=== PATIENT | female | born 1965 | race Caucasian/White ===

== ENCOUNTER 2016-09-12 22:54 | Emergency (ER) | payer BC ==
[~2016-09-12] VITALS: Ht 144.8 cm; Wt 62.8 kg
[~2016-09-12 22:54] MED LIST: BENZ100 PO
[2016-09-12 23:13] VITALS: BP 133/71; PULSE 65; RESP 18; TEMP 98.3; O2SAT 96
[2016-09-12 23:23] VITALS: BP 133/71; PULSE 65; RESP 18; TEMP 98.3; O2SAT 96
[2016-09-13] MEDS ORDERED: PANTOPRAZOLE SODIUM 40 MG VIAL IVP ONE
[2016-09-13] MEDS ORDERED: FAMOTIDINE 20 MG/2 ML VIAL IV PUSH ONE
[2016-09-13] MEDS ORDERED: ONDANSETRON HCL 4 MG/2 ML VIAL IV ONE
--- NOTE | 2016-09-13 00:02 | PD ---
HPI Chief Complaint: GI Complaint Time Seen by Provider: 23:51 Travel History International Travel<30 days: No Contact w/Intl Traveler<30days: No Traveled to known affect area: No History of Present Illness HPI The patient is a 51-year-old female who states she has nausea, vomiting and diarrhea for 2 days. She does have some epigastric pain midline. She denies any blood in the stool or vomiting any blood. She denies any fever. She denies any history of similar bowel problems in the past. 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 She denies any foreign travel within the last 3 months. She denies any dysuria, frequency or urgency. PFSH Past Medical History Cardiovascular Problems: Yes (CHOL) High Cholesterol: Yes Diminished Hearing: No Immunizations Current: Yes Tetanus Vaccination: Unknown Influenza Vaccination: No ?: Not Menopausal: Yes : 4 Para: 4 Past Surgical History Section: Yes Gynecologic Surgery: Yes () Social History Alcohol Use: No Tobacco Use: No Substance Use: No Allergies-Medications (Allergen,Severity, Reaction): Coded Allergies: No Known Allergies (Verified , 09/12/16) Reported Meds & Prescriptions Reported Meds & Active Scripts Active No Active Prescriptions or Reported Medications Review of Systems Except as stated in HPI: all other systems reviewed are Neg Physical Exam Narrative GENERAL: The patient is alert, oriented 3 and slight apparent distress with her midline epigastric discomfort. Her vital signs are normal. She does appear mildly dehydrated. SKIN: Warm and dry. HEAD: Atraumatic. Normocephalic. EYES: Pupils equal and round. No scleral icterus. No injection or drainage. ENT: No nasal bleeding or discharge. Mucous membranes pink and moist. NECK: Trachea midline. No JVD. CARDIOVASCULAR: Regular rate and rhythm. No murmur appreciated. RESPIRATORY: No accessory muscle use. Clear to auscultation. Breath sounds equal bilaterally. GASTROINTESTINAL: Abdomen soft, with tenderness to direct palpation in the midline epigastrium, nondistended. Hepatic and splenic margins not palpable. No guarding or rebound is present. MUSCULOSKELETAL: No obvious deformities. No clubbing. No cyanosis. No edema. NEUROLOGICAL: Awake and alert. No obvious cranial nerve deficits. Motor grossly within normal limits. Normal speech. PSYCHIATRIC: Appropriate mood and affect; insight and judgment normal. Data Data Last Documented VS Vital Signs Date Time Temp Pulse Resp B/P Pulse Ox O2 Delivery O2 Flow Rate FiO2 09/13/16 00:33 57 18 145/70 100 Room Air 09/12/16 23:23 98.3 Orders Complete Blood Count With Diff (09/12/16 23:57) Comprehensive Metabolic Panel (09/12/16 23:57) Lipase (09/12/16 23:57) Ondansetron Inj (Zofran Inj) (09/13/16 00:00) Sodium Chlor 0.9% 1000 Ml Inj (Ns 1000 M (09/13/16 00:00) Pantoprazole Inj (Protonix Inj) (09/13/16 00:00) Famotidine Inj (Pepcid Inj) (09/13/16 00:00) Labs Laboratory Tests Test 09/13/16 00:00 White Blood Count 7.8 TH/MM3 Red Blood Count 4.99 MIL/MM3 Hemoglobin 14.0 GM/DL Hematocrit 41.9 % Mean Corpuscular Volume 83.9 FL Mean Corpuscular Hemoglobin 28.0 PG Mean Corpuscular Hemoglobin 33.4 % Concent Red Cell Distribution Width 11.7 % Platelet Count 271 TH/MM3 Mean Platelet Volume 8.0 FL Neutrophils (%) (Auto) 57.7 % Lymphocytes (%) (Auto) 31.7 % Monocytes (%) (Auto) 5.7 % Eosinophils (%) (Auto) 4.3 % Basophils (%) (Auto) 0.6 % Neutrophils # (Auto) 4.6 TH/MM3 Lymphocytes # (Auto) 2.5 TH/MM3 Monocytes # (Auto) 0.4 TH/MM3 Eosinophils # (Auto) 0.3 TH/MM3 Basophils # (Auto) 0.0 TH/MM3 CBC Comment DIFF FINAL Differential Comment Sodium Level 141 MEQ/L Potassium Level 3.8 MEQ/L Chloride Level 105 MEQ/L Carbon Dioxide Level 28.3 MEQ/L Anion Gap 8 MEQ/L Blood Urea Nitrogen 16 MG/DL Creatinine 0.70 MG/DL Estimat Glomerular Filtration 88 ML/MIN Rate Random Glucose 105 MG/DL Calcium Level 9.1 MG/DL Total Bilirubin 0.5 MG/DL Aspartate Amino Transf 17 U/L (AST/SGOT) Alanine Aminotransferase 32 U/L (ALT/SGPT) Alkaline Phosphatase 93 U/L Total Protein 7.6 GM/DL Albumin 3.7 GM/DL Lipase 92 U/L [facility] Medical Decision Making Medical Screen Exam Complete: Yes Emergency Medical Condition: Yes Medical Record Reviewed: Yes Interpretation(s) The CBC is normal. The complete metabolic profile shows a GFR of 88 but is otherwise normal. The lipase is normal. Differential Diagnosis Viral gastroenteritis, colitis, ulcer pain, pancreatitis, electrolyte disorder, dehydration Narrative Course The patient appears to have a viral gastritis. It is now 1:30 in the morning and the patient has no nausea and her abdominal pain has resolved. She is now successfully drinking Gatorade. Diagnosis Primary Impression: Viral gastroenteritis Additional Instructions: In the next 24 hours limit your food intake to clear liquids like Gatorade. After you successfully handle Gatorade you can then move onto Jell-O, applesauce fruits and fruit juices. Avoid any fatty foods like milk or dairy products because the fat will make you nauseated. Follow-up later on this week with your primary care physician. Med/Other Pt SpecificInfo: Prescription(s) given Scripts Ondansetron (Zofran)8 Mg Tab8 Mg PO TID #21 TAB Ref 0 Prov:Wilmer Loaiza MD 09/13/16 Disposition: 01 DISCHARGE HOME Condition: Stable Wilmer Loaiza MD Sep 13, 2016 00:02
[2016-09-13] MEDS: SODIUM CHLOR 0.9% 1000 ML INJ 1,000 ML IV SCH ×2 (00:14→00:51)
[2016-09-13 00:15] LABS: AUTOMATED NEUTROPHIL # 4.6 TH/MM3 (1.8-7.7); BASOPHIL % 0.6 % (0.0-2.0); EOSINOPHIL # 0.3 TH/MM3 (0-0.4); EOSINOPHIL % 4.3 % (0.0-4.0); HEMATOCRIT 41.9 % (35.0-46.0); LYMPH % 31.7 % (9.0-44.0); LYMPHOCYTE # 2.5 TH/MM3 (1.0-4.8); MEAN CELL VOLUME 83.9 FL (80.0-100.0); MEAN CORPUSCULAR HGB CONC 33.4 % (32.0-36.0); MONO % 5.7 % (0.0-8.0); NEUT % 57.7 % (16.0-70.0); PLATELET COUNT 271 TH/MM3 (150-450); RED BLOOD COUNT 4.99 MIL/MM3 (4.00-5.30); RED CELL DISTRIBUTION WIDTH 11.7 % (11.6-17.2); WHITE BLOOD COUNT 7.8 TH/MM3 (4.0-11.0)
[2016-09-13 00:16] LABS: HEMO FLAGS DIFF FINAL
[2016-09-13 00:25] LABS: CHLORIDE 105 MEQ/L (98-107); POTASSIUM 3.8 MEQ/L (3.5-5.1); SODIUM (NA) 141 MEQ/L (136-145)
[2016-09-13 00:29] LABS: ANION GAP 8 MEQ/L (5-15); BICARBONATE 28.3 MEQ/L (21.0-32.0); BLOOD UREA NITROGEN 16 MG/DL (7-18)
[2016-09-13 00:31] LABS: ALT (GPT) 32 U/L (10-53); AST (GOT) 17 U/L (15-37)
[2016-09-13 00:32] LABS: GLOMERULAR FILTRATION RATE 88 ML/MIN (>89)
[2016-09-13 00:33] VITALS: BP 145/70; PULSE 57; RESP 18; O2SAT 100
[2016-09-13 00:33] LABS: TOTAL BILIRUBIN ADULT 0.5 MG/DL (0.2-1.0)
[2016-09-13 00:34] LABS: ALKALINE PHOSPHATASE 93 U/L (45-117)
[2016-09-13 01:28] VITALS: BP 136/72; PULSE 70; RESP 18; O2SAT 98
[2016-09-13] MEDS ORDERED: ZOFR8TAB PO (01:34)
== END 2016-09-13 01:59 | disposition home or self-care (01) ==
LOC: PHED 22:54
DX: A08.4 Viral intestinal infection, unspecified (principal); R10.13 Epigastric pain; R19.7 Diarrhea, unspecified; E78.00 Pure hypercholesterolemia, unspecified
CPT/HCPCS: 80053; 83690; 85025; 96361; 96374; 96375; 99284; C9113; J2405; J7030